=== PATIENT | male | born 1960 | race African-American/Black ===

== ENCOUNTER → 2021-04-10 10:40 | Outpatient (CLI) | payer OTHER, SELFPAY ==
--- NOTE | 2021-04-10 10:50 | RAD_ITS ---
STUDY: X-RAY - RIGHT SHOULDER REASON FOR EXAM: Male, 60 years old. R SHOULDER PAIN TECHNIQUE: 4 view(s) of the shoulder. COMPARISON: None. 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 Normal acromioclavicular joint. Normal acromion. Normal humeral head and visualized proximal humerus. The soft tissue structures are unremarkable. There is no demonstrated fracture. Normal visualized pulmonary apex. RAD/Shoulder min 2 Views IMPRESSION: Degenerative disease as described. No acute fracture or subluxation. Electronically Signed: Rossy Allan MD at 3:03 EDT , Service support ,
== END ==
PROVIDERS: Referring Provider Chiropractor; Visit Provider Chiropractor
DX: S46.911A Strain of unspecified muscle, fascia and tendon at shoulder and upper arm level, right arm, initial encounter (principal)
CPT/HCPCS: 73030